=== PATIENT | female | born 1950 | race Caucasian/White ===

== ENCOUNTER 2024-01-27 16:26 | Inpatient (IN) | payer MEDICARE, SELFPAY ==
[2024-01-27] VITALS (7 sets, daily range): BP systolic 77–122; BP diastolic 34–61; PULSE 78–84; RESP 16; TEMP 36.3–36.8; O2SAT 97–100; BMI 27.2
[2024-01-27] MEDS: 0.9% Normal Saline (1000mL) 1,000 ML 50 ML IV (16:41)
[2024-01-27] MEDS: 0.9% Normal Saline (1000mL) 1,000 ML 999 ML IV (21:05)
[2024-01-27] MEDS: Ciprofloxacin 400 MG/200 ML BAG 200 MG IV (22:06)
--- NOTE | 2024-01-27 22:55 | PCM.PN.HOSP ---
Subjective Subjective Patient notes some mild ongoing dysuria with catheter in place with ongoing continuous bladder irrigation. She does state that when she has been up with staff she does have lightheadedness and dizziness although she is currently feeling improved. She status post 1 L IV fluid bolus and BP is improved at this time. Discussed plan of care which included PRBC administration which is already been ordered per urology and plan transition to the OR for cystoscopy and further evaluation. Patient does have a history of gross hematuria previously with previous cystoscopy with no tumors or any bladder abnormality on last evaluation. Patient denies fevers, chills, nausea, emesis, abdominal pain, chest pain or dyspnea. Objective Data Objective Data Vital Signs: Vital Signs Temp Pulse Resp BP Pulse Ox O2 Del Method 98.2 F 78 16 77/60 L 97 Room Air 01/27/24 22:08 01/27/24 22:26 01/27/24 22:08 01/27/24 22:26 01/27/24 22:08 01/27/24 22:08 Oxygen Delivery Method Room Air Weight: 174 lb Body Mass Index (BMI) 27.2 Intake & Output: Intake and Output for Last 24 Hours 01/25/24 01/26/24 01/27/24 23:59 23:59 23:59 Intake Total 200 / 200 Balance 200 / 200 Lab / Micro Data 01/27/24 22:30 01/27/24 22:30 Physical Exam Narrative Physical Examination: General: Awake, alert, oriented x 3 and cooperative, laying in the MS bed, notes feeling improved since IV fluid bolus, still complaining of dysuria. Skin: Normal color, normal turgor, no icterus, no cyanosis. HEENT: AT/NC, EOMI, PERRLA, mildly dry MM, no carotid bruits or JVD noted. Lungs: Mildly diminished, greater bases, proper effort, no rales, ronchi or wheezing. Heart: Currently regular rate and rhythm; no gallop, rub audible. Abdomen: Soft, overweight, mild suprapubic discomfort with palpation otherwise NTTP, ND, distant normal BS, no appreciated HSM. Extremities: No cyanosis, no clubbing, no marked peripheral edema noted. : Conrad catheter three-way in place with continuous irrigation ongoing, Conrad bag with bright red blood tinged. Neurological: Patient awake, alert, oriented as noted, cognitive function intact; pupils equally reactive to light and accommodation, cranial nerves grossly normal, moving all 4 extremities, no focal deficits, strength moderately to severely globally decreased secondary to acute presentation. Psychiatric: Affect appears fatigued, no acute evidence of depressive or anxiety feelings but does have underlying history. Assessment & Plan Assessment/Plan (1) Gross hematuria: (2) Hypotension: PLAN: Plan The patient is a 73 y/o F w/ PMHx: Former tobacco use, Anxiety and Depression, HTN, Hx previous gross hematuria following with Dr. Tovar who presents to the [facility] as direct admission from [facility] per Dr. Tovar with acute Hematuria onset on day of presentation and dysuria prompting transfer. #1. Acute blood loss anemia secondary to acute hematuria with associated hypotension, improved with IV fluids: Patient admitted to medical surgical floor per urology, upon arrival patient noted to be hypotensive, responsive to 1 L normal saline bolus, PRBC ordered per urologist and pending, will discontinue all hypertensive regimen and aspirin therapy as well, continue three-way Conrad catheter with continuous bladder irrigation, attempting to obtain UA from outside facility however this time it does not appear she had any concurrent UTI, plan for transition to [place] to OR for cystoscopy and evacuation of blood clots with cauterization per review of urology plan of care. Admission hemoglobin 8.8, MCV 85, trend with repeat CBC in a.m. however low threshold to repeat H&H earlier if ongoing hematuria despite surgical intervention. If postoperatively patient blood pressure is stable and improved and agree with transition back to [facility] otherwise would benefit from telemetry monitoring and potentially PCU status. #2. Questionable Chronic Kidney Disease Stage III unclear subtype per GFR trending versus elevated creatinine/acute renal insufficiency versus DANTE, unable to determine given no prior renal function noted in [facility]: Admission BUN/Cr 36/1.68, GFR 32, baseline renal function unknown, will trend renal function to elucidate further. #3. Hypertension: Given presentation with hypotension with acute blood loss anemia is noted holding all hypertensive regimen. #4. Hyperlipidemia: We will continue patient on statin therapy. #5. Anxiety and depression: We will continue patient home citalopram regimen. #6. Former tobacco use: Encourage continued tobacco cessation. #7. DVT prophylaxis: Would benefit from consideration SCDs. #8. CODE status: Patient CRISTO is her friend Cisco Santos and she is uncertain if living will is in place. Discussed CODE status at length including difference between FULL code, DNR-CCA and DNR-CC status. Following discussions about the differences in these status, requested Full Code status. Charges/Coding Visit Charges Inpatient E&M: 52802 Subs Hosp L3
--- NOTE | 2024-01-27 23:04 | HP.PCM_ITS ---
HPI - General General Date of Admission: 01/27/24 Date of Service: 01/27/24 Chief Complaint: Gross hematuria HPI Narrative NUVIA BAIN, is a 73 F who presents to [facility] she is a transfer from [facility]. She has a history of gross hematuria in the past and we did a cystoscopy in the office I did not see any tumors or abnormalities in the bladder at that point and she was told to contact me if the bleeding continues. She then reports that yesterday she started having some gross hematuria and went to the emergency room she had a workup done and then was discharged but then she we presented back to [facility] with more bleeding and she was concerned about the bleeding so I was called and accepted the patient as a transfer, on arrival she was fairly stable but then this evening hematuria has not increased and has had more gross blood in the urine so at this point we placed a three-way catheter to irrigate out the blood clots her blood pressure has been running low and currently she is 77/66 but she looks clinically stable. She will be resuscitated with fluids and she might need a blood transfusion patient was agreeable with this we will consult the hospitalist to help with management of her blood pressure as well. Plan to take her to surgery immediately for cystoscopy evacuation of all the blood clots and cauterization of the bleeding and resection of any possible tumors. [facility] Medical History Wears hearing aid in both ears Depression Former smoker Hypertension Home Medications ?Medication ?Instructions ?Recorded ?Last Taken ?Type aspirin 81 mg chewable tablet 81 mg PO DAILY@0800 07/17/15 01/27/24 History cholecalciferol (vitamin D3) 25 3,000 unit PO DAILY 07/17/15 01/27/24 History mcg (1,000 unit) tablet (Vitamin D3) citalopram 20 mg tablet 20 mg PO DAILY 07/17/15 01/27/24 History lisinopril 10 mg tablet 10 mg PO DAILY 07/17/15 01/27/24 History meloxicam 15 mg tablet 15 mg PO DAILY 07/17/15 01/27/24 History naproxen sodium 500 mg 500 mg PO PRN PRN Pain 07/24/15 07/21/15 History tablet,extended release 24 hr mphase atorvastatin 40 mg tablet 40 mg PO DAILY 01/27/24 01/27/24 History cephalexin 500 mg capsule 500 mg PO Q12.TCU 01/27/24 01/27/24 History metoprolol tartrate 25 mg tablet 25 mg PO BID 01/27/24 01/27/24 History oxycodone-acetaminophen 5 mg-325 1 tab PO Q12.TCU severe pain 01/27/24 01/26/24 History mg tablet Allergy/AdvReac Type Severity Reaction Status Date / Time No Known Allergies Allergy Verified 07/17/15 13:21 Surgical History History of appendectomy History of cholecystectomy Social History Smoking Status: Former smoker ROS ROS Narrative Review of systems is negative except for gross hematuria she has got no shortness of breath chest pain etc. really only having pain in the suprapubic area Constitutional Constitutional: Denies chills, fever(s) or malaise Eyes Eyes: Denies blurry vision or change in vision ENT HEENT: Reports none Cardiovascular Cardiovascular: Denies chest pain or palpitations Respiratory/Chest Respiratory/Chest: Denies cough or shortness of breath with exertion Gastrointestinal Gastrointestinal: Denies abdominal pain, constipation or diarrhea Musculoskeletal Musculoskeletal: Denies back pain, joint stiffness or joint swelling Integumentary Integumentary: Denies dry skin, jaundice, lesions or rash Neurologic Neurologic: Denies confusion, syncope or weakness Psychiatric Psychiatric: Reports none; Denies anxiety or depression Endocrine Endocrinology: Denies excessive sweating, fatigue or flushing Hematologic/Lymphatic Hematologic/Lymphatic: Denies anemia, easy bleeding or easy bruising Vital Signs Vital Signs Vital Signs: 01/27/24 16:10 01/27/24 16:31 01/27/24 20:33 Temperature 97.4 F L 97.8 F Temperature Source Temporal Oral Pulse Rate 78 83 Respiratory Rate 16 16 Respiratory Effort Normal Non-Labored Respiratory Depth Normal Respiratory Pattern Normal Blood Pressure 122/61 H 84/44 L Blood Pressure Mean 81 57 Blood Pressure Source Monitor Monitor Blood Pressure Position Semi-Fowlers Blood Pressure Location Left Arm Pulse Ox 99 100 Oxygen Delivery Method Room Air Room Air Room Air 01/27/24 20:38 01/27/24 20:58 01/27/24 22:08 Temperature 98.2 F Temperature Source Oral Pulse Rate 83 Respiratory Rate 16 Respiratory Effort Normal Non-Labored Respiratory Depth Normal Respiratory Pattern Normal Blood Pressure 84/44 L 94/34 L Blood Pressure Mean 54 Blood Pressure Source Monitor Blood Pressure Position Semi-Fowlers Blood Pressure Location Left Arm Pulse Ox 97 Oxygen Delivery Method Room Air 01/27/24 22:26 Temperature Temperature Source Pulse Rate 78 Respiratory Rate Respiratory Effort Respiratory Depth Respiratory Pattern Blood Pressure 77/60 L Blood Pressure Mean 65 Blood Pressure Source Monitor Blood Pressure Position Semi-Fowlers Blood Pressure Location Left Arm Pulse Ox Oxygen Delivery Method Weight Weight: 78.925 kg Body Mass Index (BMI) 27.2 Physical Exam Narrative On exam she is not in any distress she is alert and oriented x 3 interactive and talking pleasant cooperative she is not diaphoretic or in distress. Her abdomen is soft and benign extremities are normal we placed a Conrad catheter into the bladder and started three-way irrigation Const alert and oriented x3 General Appearance: cooperative HEENT normocephalic, head/scalp atraumatic, EAC's normal and TM's normal bilaterally Eyes PERRL and EOMs intact bilaterally Pupil: sluggish Neck no lymphadenopathy, supple and no JVD General: trachea midline Lymph Lymphatic: no lymphadenopathy noted, lymphedema and lymphadenopathy Resp normal respiratory effort, normal air movement and clear to auscultation bilaterally Cardio regular rate, regular rhythm and peripheral pulses 2+ throughout GI soft to palpation, non-tender and non-distended Extremity normal capillary refill and no clubbing, cyanosis or edema General Extremity: no tenderness to palpation of joints or extremities Skin no rashes or lesions noted General Skin Exam: turgor normal Lesions: no lesions Rashes: no rashes Neuro CN's II-XII intact bilaterally Speech: speech normal Motor Exam: strength 5/5 throughout; Negative for general weakness Psych thought process normal, cooperative and affect normal Appearance: appropriate Results Lab / Micro Data 01/27/24 22:30 01/27/24 22:30 Assessment & Plan Assessment/Plan (1) Gross hematuria: PLAN: Plan to type and screen the patient for 2 units of blood, continue with hydration resuscitation of her blood pressure, and we will plan to take the patient to surgery later this evening for cystoscopy evacuation of blood clots and cauterization and stop the bleeding. Hospital service has been consulted as well to help with medical management. (2) Hypotension:
[2024-01-27 23:07] LABS: Absolute Lymphocyte Count 1.07 X10^3/uL (0.83-4.51); Absolute Neutrophil Count 6.1 X10^3/uL (2.0-7.7); Basophil# 0.04 X10^3/uL; Basophil% 0.5 % (0-1); Eosinophil# 0.16 X10^3/uL; Hematocrit 27.8 % (37-47); Hemoglobin 8.8 g/dL (12.0-15.0); Lymphocyte # 1.07 X10^3/ul (0.83-4.51); Lymphocyte % 13.5 % (19-41); Mean Corp Hgb Conc 31.7 g/dL (32-36); Mean Corpuscular Hgb 26.9 pg (27.0-32.0); Mean Platelet Vol. 10.7 fl (6.2-12.0); Monocyte# 0.58 X10^3/uL; Monocyte% 7.3 % (0-10); NRBC Flagged by Analyzer 0 % (0-5); Neutrophil # 6.07 X10^3/uL (2.7-7.7); Neutrophil % 76.3 % (47-70); Platelet Count 235 K/mm3 (150-450); RBC Distribution Width CV 13.6 % (11.6-14.6); RBC Distribution Width SD 42.3 fl (35.1-43.9); Red Blood Count 3.27 M/mm3 (4.2-5.4)
[2024-01-27 23:26] LABS: Anion Gap 6 (5-15); BUN 36 mg/dL (7-18); BUN/Creat Ratio 21.4 RATIO (10-20); Calcium,Total 8.7 mg/dL (8.5-10.1); Chloride 108 mmol/L (98-107); Creatinine, Serum 1.68 mg/dL (0.55-1.02); EST Glomerular Filtration Rate 32 mL/min (>60); Est Glom Filt Rate - Afr Amer 38 mL/min (>60); Glucose 117 mg/dL (74-106); Potassium 3.8 mmol/L (3.5-5.1); Sodium Level 136 mmol/L (136-145)
--- NOTE | 2024-01-27 23:26 | PCM.PRE.AN2 ---
ASA Classification* ASA Classification ASA Classification: 3 and E Assessment & Plan Anesthesia* Anesthesia Assessment Anesthesia Assessment: Discussed sedation and/or anesthesia options, risks, benefits, and alternatives with patient/parents/legal guardian/POA. Questions invited. The patient/parents/legal guardian/POA seems to understand and agrees to proceed with anesthesia plan. Reviewed the physical assessment, medical history, allergy history and patient home medications list prior to surgery/procedure/anesthetic and documented any changes. Performed airway and anesthesia risk assessments. Anesthesia Type Anesthesia Type: General (see written pre anesthesia record for full assessment) Anesthesia Focused Assessment* Temperature: 97.4 F Pulse Rate: 84 Blood Pressure: 102/57 Respiratory Rate: 16 Pulse Ox: 99 Airway Assessment Mouth opens: >3 cm Mallampati Score: II Focused Labs Anesthesia Preop lab: CBC WBC 8.0 K/mm3 (4.4-11.0) 01/27/24 22:30 RBC 3.27 M/mm3 (4.2-5.4) L 01/27/24 22:30 Hgb 8.8 g/dL (12.0-15.0) L 01/27/24 22:30 Hct 27.8 % (37-47) L 01/27/24 22:30 Plt Count 235 K/mm3 (150-450) 01/27/24 22:30 CHEMISTRY Potassium 3.8 mmol/L (3.5-5.1) 01/27/24 22:30 Sodium 136 mmol/L (136-145) 01/27/24 22:30 BUN 36 mg/dL (7-18) H 01/27/24 22:30 Creatinine 1.68 mg/dL (0.55-1.02) H 01/27/24 22:30 Glucose 117 mg/dL (74-106) H 01/27/24 22:30 COAG Pre-Assessment Diagnosis/Proposed Procedure Planned Operative Procedure(s): turbt Anesthesia History 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 When Was Last Pacemaker Check QUESTION #4 FULL TEXT: You/Your Family Experience fever (hyperthermia) with Anesthesia Last Oral Intake Last Oral intake: Last Oral Intake NPO since 18:30 01/27/24 23:08 Meds taken in AM with sips of water? 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: PONV - supervisor airplane flight attendant Female HX of Motion Sickness HX of N/V After Surgery Non-Smoker Duration of Surgery greater than 60 minutes Number of Risk Factors PONV Score Height & Weight Height & Weight: Anesthesia: Height & Weight Height 5 ft 7 in 01/27/24 23:08 Weight: 78.9 kg 01/27/24 23:08 Body Mass Index (BMI) 27.2 01/27/24 23:08 Respiratory Assessment Respiratory Assessment - supervisor airplane flight attendant: Respiratory Tract Infection Hx - supervisor airplane flight attendant Hx Respiratory Tract Infection No 01/27/24 23:05 STOP Sleep Apnea STOP Sleep Apnea - supervisor airplane flight attendant: STOP Sleep Apnea - supervisor airplane flight attendant Hx Hypertension Yes 01/27/24 16:10 Hx Sleep Apnea No 01/27/24 16:10 CPAP BIPAP Do you snore loudly (louder No 01/27/24 16:10 than talking or can be heard Do you often feel tired/ No 01/27/24 16:10 fatigued/ sleepy during daytime? Has anyone observed you stop No 01/27/24 16:10 breathing during sleep? STOP Results Negative 01/27/24 16:10 QUESTION #5 FULL TEXT : Do you snore loudly (louder than talking or can be heard through closed doors)? 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 Specify any problems Hx of Preganancy in last 3 No 01/27/24 16:10 Months Nurse Filling Out Transfusion [facility] 01/27/24 16:10 & Questions: Date: 01/27/24 01/27/24 16:10 Time: 16:13 01/27/24 16:10 Patient unable to answer at this time (ie. 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: /Reproductive Hx- supervisor airplane flight attendant Hx Now No 01/27/24 23:05 Gestational Age (in weeks): EDC: Hx Hx Para Hx Section SAB No 01/27/24 23:05 Active Medications Active Medications: Current Medications Generic Name Dose Route Start Last Admin Trade Name Freq PRN Reason Stop Dose Admin Atorvastatin Calcium 40 mg 01/27/24 22:00 01/27/24 18:44 Atorvastatin Calcium 40 Mg Tablet PO Not Given QHS NICK Cholecalciferol 25 mcg 01/28/24 08:00 Cholecalciferol (Vit D3) 25 Mcg Tablet (1,000 Units) PO DAILYCM NICK Citalopram Hydrobromide 20 mg 01/28/24 10:00 Citalopram 20 Mg Tablet PO DAILY NICK Sodium Chloride 250 mls @ 15 mls/hr 01/27/24 16:15 IV .[id number] PRN Additional IVPB Infusion Sodium Chloride 250 mls @ 15 mls/hr 01/27/24 16:15 IV .[id number] PRN Saline Flush Sodium Chloride 1,000 mls @ 50 mls/hr 01/27/24 16:30 01/27/24 16:41 IV 50 mls/hr .Q20H NICK Administration Ciprofloxacin 400 mg in 200 mls @ 200 mls/hr 01/27/24 22:00 01/27/24 22:06 Cipro IV 200 mls/hr Q12 NICK Administration Meloxicam 15 mg 01/28/24 10:00 Meloxicam 15 Mg Tablet PO DAILY NICK Sodium Chloride 10 - 40 ml 01/27/24 16:15 0.9% Saline Lock 10 Ml Syringe IV UD PRN SALINE FLUSH PFSH Medical History Post-menopausal Wears hearing aid in both ears Depression Former smoker Hypertension Home Medications ?Medication ?Instructions ?Recorded ?Last Taken ?Type aspirin 81 mg chewable tablet 81 mg PO DAILY@0800 07/17/15 01/27/24 History cholecalciferol (vitamin D3) 25 3,000 unit PO DAILY 07/17/15 01/27/24 History mcg (1,000 unit) tablet (Vitamin D3) citalopram 20 mg tablet 20 mg PO DAILY 07/17/15 01/27/24 History lisinopril 10 mg tablet 10 mg PO DAILY 07/17/15 01/27/24 History meloxicam 15 mg tablet 15 mg PO DAILY 07/17/15 01/27/24 History naproxen sodium 500 mg 500 mg PO PRN PRN Pain 07/24/15 07/21/15 History tablet,extended release 24 hr mphase atorvastatin 40 mg tablet 40 mg PO DAILY 01/27/24 01/27/24 History cephalexin 500 mg capsule 500 mg PO Q12.TCU 01/27/24 01/27/24 History metoprolol tartrate 25 mg tablet 25 mg PO BID 01/27/24 01/27/24 History oxycodone-acetaminophen 5 mg-325 1 tab PO Q12.TCU severe pain 01/27/24 01/26/24 History mg tablet Allergy/AdvReac Type Severity Reaction Status Date / Time No Known Allergies Allergy Verified 07/17/15 13:21 Surgical History History of appendectomy History of cholecystectomy Social History Smoking Status: Former smoker Review of Systems (Anesthesia) ROS Narrative System reviewed and no additional complaints, except as documented.
--- NOTE | 2024-01-27 23:40 | BLB_PTH ---
PATIENT: NUVIA BAIN LOC: MS3 U#:[id number] AGE/SX: 73/F ROOM: [facility] [place] RE01/27/[address]: Dr. Rufino Tovar MD : [id number] BED: 1 DIS: 01/29/2024 SPEC #: [id number] RECD: 01/29/24 07:44 STATUS: BAILEE GERARDO #: [id number] LORA: 01/27/24 23:[address]: Rufino Tovar DEPT: SURGICAL PATHOLOGY RECD BY: Rajinder Vargas ENTERED: 01/29/24 09:48 SP TYPE: TURB OTHR DR: Dr. Jamel Perla, DO [address] [place] Tissues: A - Urinary bladder, NOS B - BLOOD CLOT, NOS Procedures: Surgery Specimen Level III Surgery Specimen Level V HEADER OPERATION: Transurethral resection bladder PRE-OP DIAGNOSIS: Gross hematuria, bladder lesion TISSUE SUBMITTED: A- Bladder tissue, B- Blood clots MICROSCOPIC DIAGNOSIS A. 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 No evidence of malignancy. Mild reactive epithelial atypia. B. Blood clots, removal: Organizing blood clots. / 01/30/2024 MICROSCOPIC DESCRIPTION Slides are reviewed. GROSS DESCRIPTION A. Received in fixative is one container labeled with the patient's name and designated Bladder tissue. The specimen consists of multiple irregular fragments of batres soft tissue mixed with blood clots that in aggregate measure 2.0 x 1.5 x 0.3 cm. The specimen is totally submitted in one cassette. B. Received in fixative is one container labeled with the patient's name and designated Blood clots. The specimen consists of multiple fragments of blood clots measuring in aggregate 10.0 x 10.0 x 2.5cm. No tissue is identified. Engineering Specialist Technician tissue are submitted in two cassettes. Kerry 01/29/2024 TC:5 CPT:79710,66083 ADDENDUM ADDENDUM ADDENDUM 02/05/2024 11:06 ADDENDUM 02/05/2024 11:06 ADDENDUM 02/05/2024 11:06 ADDENDUM 02/05/2024 11:06 ADDENDUM 02/05/2024 11:06 The specimen is sent to [facility] for expert opinion, reviewed by Dr. Simental and the above diagnosis is rendered. The complete report is viewable in the patient's EMR.
[2024-01-28] VITALS (16 sets, daily range): BP systolic 97–127; BP diastolic 51–83; PULSE 74–95; RESP 16–20; TEMP 36.3–37.1; O2SAT 94–100
--- NOTE | 2024-01-28 00:40 | PCM.OPRPT ---
Report of Operation Date of Procedure: 01/28/24 Pre-Operative Diagnosis: Gross hematuria Post-Operative Diagnosis: Gross hematuria and bladder tumor Surgery/Procedure Performed:: Cystoscopy evacuation of blood clots and transurethral section of a large bladder tumor Description of Surgical Findings:: Findings, in the posterior wall there was some active bleeding and this was cauterized completely in the posterior wall and up to the dome there was a large patch that was about 5 x 6 cm in size and by 0.5 cm in depth that looks suspicious for carcinoma in situ multiple biopsy this areas were taken and it was cauterized extensively Patient presented to the hospital with acute gross hematuria. Patient understands is possible it may not be able to stop the bleeding patient also understands is possible that the patient may need multiple procedures. Patient was taken back to the operating room after smooth induction of anesthesia the patient was placed supine on the table. The patient was placed in dorsolithotomy position. The urethra and genitals prepped and draped in usual sterile fashion. I went into the bladder with a 30 degree lens and a cystoscope was performed and identified a significant amount of hemorrhage within the bladder this was all evacuated out, and then occupying mostly the posterior wall the bladder dome and posterior wall there was a large area that was abnormal size was measured as above. I then switched over to the 70 degree lens and inspected the rest of the bladder with a 70 degree lens to make sure there is no other tumors in the bladder and to identify all the tumor locations. The right and left ureteral orifice were identified. The tumor was not involved with ureteral orifice. I then placed the Olympus bipolar resectoscope with a large loop into the bladder. I then started resected the tumor area in the posterior wall and started superficially shaving small little pieces working my way to the base of the tumor. As I went along I then cauterize any bleeders that were encountered during the resection. The tumor pieces were then flushed out of the bladder and continued resecting the tumor until finally I got down to the base of the tumor and the muscle of the bladder was then identified a small little bit of muscle was taken with the resection. The Ellik was used then to evacuate all the tumor pieces out of the bladder. I then cauterized extensively the tumor base and also circumferentially around where the tumor was. Again we made sure to evacuate all the pieces out the bladder. I made sure there was no more bleeding from the base of the bladder and then over the tumor pieces were then evacuated out and sent off as a specimen. We then placed the catheter in the bladder and the patient was taken back to the PACU in stable condition with continuous irrigation. Surgeon: Rufino Tovar Type of Anesthesia: General Drains: 22fr 3 way Admit VTE Documentation VTE Present on Admission: No VTE Mechan Device Prophylaxis: SCD's VTE Pharm Prophylaxis ordered?: No
--- NOTE | 2024-01-28 00:54 | PCM.POST.ANE ---
Anesthesia: Postop Eval I Current Vital Signs Temperature: 98.3 F Pulse Rate: 82 Blood Pressure: 115/53 Respiratory Rate: 19 Pulse Ox: 100 Assessment Airway patent: Yes Spontaneous unlabored respirations: Yes nausea: No Vomiting: No Anesthesia Complication: No Fluid Hydration Crystalloid volume administer (ml): 350 Total IV fluid infused: 350 Progress Note Anesthesia document: Postop Eval 1 completed: Yes
--- NOTE | 2024-01-28 00:55 | POSTOPAN2_ITS ---
Anesthesia Postop Eval I Sum Postop Eval Completion status Anesthesia document: Postop Eval 1 completed: Yes Anesthesia Postop Eval I Summary Anesthesia Postop Eval I Summary: Anesthesia Postop Eval I: Assessment Summary Airway patent Yes 01/28/24 00:54 [email or web address] Spontaneous unlabored Yes 01/28/24 00:54 [email or web address] respirations Mental status nausea No 01/28/24 00:54 [email or web address] Vomiting No 01/28/24 00:54 [email or web address] Anesthesia Postop Eval I: Fluid Summary Crystalloid volume administer 350 01/28/24 00:54 [email or web address] (ml) Colloids volume administered ( ml) Blood Product volume administered (ml) Total IV fluid infused 350 01/28/24 00:54 [email or web address] Anesthesia Postop Eval I: Summary Notes Anesthesia Complication No 01/28/24 00:54 [email or web address] [email or web address] Anesthesia Complication Comment: Post-operative progress note Anesthesia: Postop Eval II Evaluation Mental status: Awake Pain Level: 0 nausea: No Vomiting: No
--- NOTE | 2024-01-28 00:55 | PCM.POSTANE2 ---
Anesthesia Postop Eval I Sum Postop Eval Completion status Anesthesia document: Postop Eval 1 completed: Yes Anesthesia Postop Eval I Summary Anesthesia Postop Eval I Summary: Anesthesia Postop Eval I: Assessment Summary Airway patent Yes 01/28/24 00:54 [email or web address] Spontaneous unlabored Yes 01/28/24 00:54 [email or web address] respirations Mental status nausea No 01/28/24 00:54 [email or web address] Vomiting No 01/28/24 00:54 [email or web address] Anesthesia Postop Eval I: Fluid Summary Crystalloid volume administer 350 01/28/24 00:54 [email or web address] (ml) Colloids volume administered ( ml) Blood Product volume administered (ml) Total IV fluid infused 350 01/28/24 00:54 [email or web address] Anesthesia Postop Eval I: Summary Notes Anesthesia Complication No 01/28/24 00:54 [email or web address] Anesthesia Complication Comment: Post-operative progress note Anesthesia: Postop Eval II Evaluation Mental status: Awake Pain Level: 0 nausea: No Vomiting: No
--- NOTE | 2024-01-28 08:21 | PN.HOSP_ITS ---
Reason for Visit Reason for Visit: Gross hematuria Subjective Subjective Patient is a 73-year-old patient who was transferred here from [facility]. She has a history of gross hematuria previously and has had previous cystoscopy in the office with no identifiable tumors or abnormalities in the bladder. At that point she was told urology to contact him if the bleeding continued. She had recurrent gross hematuria on 01/26/2024 and went to the emergency department. She had a workup done and then was discharged home but presented back to the hospital with more bleeding and was concerned so the patient was transferred here. A three-way catheter was placed for irrigation and we were consulted for assistance with medical management. She was taken for cystoscopy early this morning at which time she had a cystoscopy evaluation of clots and transurethral section of a large bladder tumor. 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 Patient has no complaints at this time. Urine is clear and plan is to discontinue continues in her ideation with possible discharge tomorrow and outpatient follow-up. Patient asks for a couple coffee. This was provided. Objective Data Objective Data Vital Signs: Vital Signs Temp Pulse Resp BP Pulse Ox O2 Del Method 98.1 F 80 16 127/67 H 100 Room Air 01/28/24 07:04 01/28/24 07:04 01/28/24 07:04 01/28/24 07:04 01/28/24 07:04 01/28/24 07:04 Oxygen Delivery Method Room Air Weight: 78.9 kg Body Mass Index (BMI) 27.2 Intake & Output: Intake and Output for Last 24 Hours 01/26/24 01/27/24 01/28/24 23:59 23:59 23:59 Intake Total 1740.83 / 1740.83 102 / 102 Output Total 400 / 400 Balance 1740.83 / 1740.83 -298 / -298 Lab / Micro Data 01/28/24 08:10 01/28/24 08:10 Labs: Laboratory Results - last 24 hr 01/27/24 22:30: WBC 8.0, RBC 3.27 L, Hgb 8.8 L, Hct 27.8 L, MCV 85.0, MCH 26.9 L , MCHC 31.7 L, RDW Std Deviation 42.3, RDW Coeff of Ruddy 13.6, Plt Count 235, MPV 10.7, Immature Gran % (Auto) 0.400, Neut % (Auto) 76.3 H, Lymph % (Auto) 13.5 L, Evangeline % (Auto) 7.3, Eos % (Auto) 2.0, Baso % (Auto) 0.5, Absolute Neuts (auto) 6.1, Absolute Lymphs (auto) 1.07, Nucleated RBC % 0, Sodium 136, Potassium 3.8, Chloride 108 H, Carbon Dioxide 22.0, Anion Gap 6, BUN 36 H, Creatinine 1.68 H, Estim Creat Clear Calc 31.30, Est GFR (MDRD) Af Amer 38 L, Est GFR (MDRD) Non-Af 32 L, BUN/Creatinine Ratio 21.4 H, Glucose 117 H, Calcium 8.7, Blood Type A POSITIVE, Antibody Screen NEGATIVE, Crossmatch See Detail Physical Exam Const alert, oriented x3, no apparent distress, average body habitus and well nourished HEENT head/scalp atraumatic and moist oral mucous membranes Head and Scalp: normocephalic Resp normal respiratory effort, no retractions, no use of accessory muscles and clear to auscultation bilaterally Auscultation: Negative for rales, rhonchi or wheezes Cardio regular rate, regular rhythm, S1 normal heart sound, S2 normal heart sound, no murmurs, no rub, no gallops and no clicks GI normal to inspection, nondistended, normoactive bowel sounds, soft to palpation and non-tender Extremity no clubbing, cyanosis or edema Extremity Narrative: Pedal pulses are 2+ Neuro oriented x3, moves all extremities and no focal motor deficits Speech: speech normal Psych affect normal Psych Narrative: Very pleasant, interacts appropriate Assessment & Plan Assessment/Plan (1) Gross hematuria: (2) Hypotension: (3) Acute anemia: PLAN: Plan Gross hematuria secondary to bladder tumor -Biopsies taken -Hold aspirin -IVF per primary service -Cipro per primary service -Will hold NSAIDs at this time -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 -Management per primary service -Currently has three-way bladder irrigation ongoing Acute blood loss anemia secondary to the above -Transfused 2 units of packed red blood cells -Hemoglobin 8.8 on presentation and now 10.3 -Will check a repeat hemoglobin today at noon to assess for stability -Transfuse for precipitous drop or hemoglobin less than 7 Hypotension -Resolved -Current blood pressure 127/67 -Hold home antihypertensives for now -As needed hydralazine available Essential hypertension -Will hold antihypertensives due to hypotension (lisinopril/metoprolol) -As needed hydralazine available HPL -cont atorvastatin Elevated serum creatinine -Baseline is unknown at this time -Will continue to monitor Anxiety/Depression -cont Celexa History of tobacco abuse -Encourage ongoing cessation DVT prophylaxis -Add SCDs -Avoid chemoprophylaxis due to bleeding CODE STATUS -Full code as noted in the note will add to the orders Charges/Coding Visit Charges Inpatient E&M: 70083 Subs Hosp L2
[2024-01-28 08:22] LABS: Absolute Lymphocyte Count 1.25 X10^3/uL (0.83-4.51); Absolute Neutrophil Count 4.7 X10^3/uL (2.0-7.7); Basophil# 0.05 X10^3/uL; Basophil% 0.8 % (0-1); Eosinophil# 0.16 X10^3/uL; Eosinophils% 2.4 % (0-5); Hematocrit 32.3 % (37-47); Hemoglobin 10.3 g/dL (12.0-15.0); Lymphocyte # 1.25 X10^3/ul (0.83-4.51); Lymphocyte % 18.8 % (19-41); Mean Corp Hgb Conc 31.9 g/dL (32-36); Mean Corpuscular Volume 84.6 fL (81-99); Mean Platelet Vol. 10.1 fl (6.2-12.0); Monocyte# 0.44 X10^3/uL; Monocyte% 6.6 % (0-10); NRBC Flagged by Analyzer 0 % (0-5); Neutrophil # 4.73 X10^3/uL (2.7-7.7); Neutrophil % 71.1 % (47-70); Platelet Count 213 K/mm3 (150-450); RBC Distribution Width CV 14.1 % (11.6-14.6); RBC Distribution Width SD 43.6 fl (35.1-43.9); Red Blood Count 3.82 M/mm3 (4.2-5.4); White Blood Count 6.7 K/mm3 (4.4-11.0)
[2024-01-28 08:43] LABS: Anion Gap 6 (5-15); BUN 25 mg/dL (7-18); BUN/Creat Ratio 23.6 RATIO (10-20); Calcium,Total 8.8 mg/dL (8.5-10.1); Chloride 110 mmol/L (98-107); Creatinine, Serum 1.06 mg/dL (0.55-1.02); EST Glomerular Filtration Rate 54 mL/min (>60); Est Glom Filt Rate - Afr Amer 65 mL/min (>60); Glucose 102 mg/dL (74-106); Potassium 4.1 mmol/L (3.5-5.1); Sodium Level 139 mmol/L (136-145)
[2024-01-28] MEDS: Cholecalciferol (VIT D3) 25 MCG TABLET (1,000 UNITS) PO (08:57)
[2024-01-28] MEDS: Citalopram 20 MG Tablet PO (09:01)
--- NOTE | 2024-01-28 09:16 | PCM.PN.GU ---
Subjective Subjective 73-year-old female status post resection bleeding bladder lesion. Explained to the patient was not sure if this was cancer or just an inflammatory lesion that was bleeding. Fortunately today the urine is completely clear so we can stop continuous bladder irrigation she can get out of bed walk away around and ambulate with a Conrad to leg bag we can clamp the irrigation port. Objective Data Objective Data Vital Signs: Vital Signs Temp Pulse Resp BP Pulse Ox O2 Del Method 98.1 F 80 16 127/67 H 100 Room Air 01/28/24 07:04 01/28/24 07:04 01/28/24 07:04 01/28/24 07:04 01/28/24 07:04 01/28/24 07:04 Oxygen Delivery Method Room Air Weight: 78.9 kg Body Mass Index (BMI) 27.2 Intake & Output: Intake and Output for Last 24 Hours 01/26/24 01/27/24 01/28/24 23:59 23:59 23:59 Intake Total 1740.83 / 1740.83 102 / 102 Output Total 400 / 400 Balance 1740.83 / 1740.83 -298 / -298 Lab / Micro Data 01/28/24 08:10 01/28/24 08:10 Labs: Laboratory Results - last 24 hr 01/27/24 22:30: WBC 8.0, RBC 3.27 L, Hgb 8.8 L, Hct 27.8 L, MCV 85.0, MCH 26.9 L, MCHC 31.7 L, RDW Std Deviation 42.3, RDW Coeff of Ruddy 13.6, Plt Count 235, MPV 10.7, Immature Gran % (Auto) 0.400, Neut % (Auto) 76.3 H, Lymph % (Auto) 13.5 L, Prentiss % (Auto) 7.3, Eos % (Auto) 2.0, Baso % (Auto) 0.5, Absolute Neuts (auto) 6.1, Absolute Lymphs (auto) 1.07, Nucleated RBC % 0, Sodium 136, Potassium 3.8, Chloride 108 H, Carbon Dioxide 22.0, Anion Gap 6, BUN 36 H, Creatinine 1.68 H, Estim Creat Clear Calc 31.30, Est GFR (MDRD) Af Amer 38 L, Est GFR (MDRD) Non-Af 32 L, BUN/Creatinine Ratio 21.4 H, Glucose 117 H, Calcium 8.7, Blood Type A POSITIVE, Antibody Screen NEGATIVE, Crossmatch See Detail 01/28/24 08:10: WBC 6.7, RBC 3.82 L, Hgb 10.3 L, Hct 32.3 L, MCV 84.6, MCH 27.0, MCHC 31.9 L, RDW Std Deviation 43.6, RDW Coeff of Ruddy 14.1, Plt Count 213, MPV 10.1, Immature Gran % (Auto) 0.300, Neut % (Auto) 71.1 H, Lymph % (Auto) 18.8 L, [place] % (Auto) 6.6, Eos % (Auto) 2.4, Baso % (Auto) 0.8, Absolute Neuts (auto) 4.7, Absolute Lymphs (auto) 1.25, Nucleated RBC % 0, Sodium 139, Potassium 4.1, Chloride 110 H, Carbon Dioxide 23.0, Anion Gap 6, BUN 25 H, Creatinine 1.06 H, Estim Creat Clear Calc 49.60, Est GFR (MDRD) Af Amer 65, Est GFR (MDRD) Non-Af 54 L, BUN/Creatinine Ratio 23.6 H, Glucose 102, Calcium 8.8 Physical Exam Const alert and oriented x3 General Appearance: cooperative HEENT normocephalic, head/scalp atraumatic, EAC's normal and TM's normal bilaterally Eyes PERRL and EOMs intact bilaterally Pupil: sluggish Neck no lymphadenopathy, supple and no JVD General: trachea midline Lymph Lymphatic: no lymphadenopathy noted, lymphedema and lymphadenopathy Resp normal respiratory effort, normal air movement and clear to auscultation bilaterally Cardio regular rate, regular rhythm and peripheral pulses 2+ throughout GI soft to palpation, non-tender and non-distended Extremity normal capillary refill and no clubbing, cyanosis or edema General Extremity: no tenderness to palpation of joints or extremities Skin no rashes or lesions noted General Skin Exam: turgor normal Lesions: no lesions Rashes: no rashes Neuro CN's II-XII intact bilaterally Speech: speech normal Motor Exam: strength 5/5 throughout; Negative for general weakness Psych thought process normal, cooperative and affect normal Appearance: appropriate Assessment & Plan Assessment/Plan (1) Hypotension: PLAN: Resolved with control of bleeding and also blood pressure has improved after transfusion of blood (2) Gross hematuria: PLAN: Bleeding has stopped Conrad catheter to gravity drainage Hep-Lock IV fluids ambulate will monitor for 1 day plan to discharge home tomorrow and will give a voiding trial prior to going home.
[2024-01-28] MEDS: Ciprofloxacin 400 MG/200 ML BAG 200 MG IV ×2 (10:16→23:24)
[2024-01-28 12:28] LABS: Hemoglobin 10.1 g/dL (12.0-15.0)
[2024-01-28] MEDS: Atorvastatin Calcium 40 MG Tablet PO (23:14)
[2024-01-28] MEDS: 0.9% Saline Lock 10 ML Syringe IV (23:21)
[2024-01-29 04:55] VITALS: BP 141/60; PULSE 85; RESP 18; TEMP 36.5; O2SAT 96
[2024-01-29 06:34] LABS: Hematocrit 30.8 % (37-47); Mean Corp Hgb Conc 32.5 g/dL (32-36); Mean Corpuscular Hgb 27.2 pg (27.0-32.0); Mean Corpuscular Volume 83.9 fL (81-99); Mean Platelet Vol. 9.7 fl (6.2-12.0); Platelet Count 215 K/mm3 (150-450); RBC Distribution Width CV 14.1 % (11.6-14.6); RBC Distribution Width SD 43.2 fl (35.1-43.9); Red Blood Count 3.67 M/mm3 (4.2-5.4); White Blood Count 6.2 K/mm3 (4.4-11.0)
[2024-01-29 07:32] LABS: Anion Gap 9 (5-15); BUN 14 mg/dL (7-18); BUN/Creat Ratio 17.2 RATIO (10-20); Calcium,Total 9.1 mg/dL (8.5-10.1); Chloride 106 mmol/L (98-107); Creatinine, Serum 0.81 mg/dL (0.55-1.02); EST Glomerular Filtration Rate 73 mL/min (>60); Est Glom Filt Rate - Afr Amer 88 mL/min (>60); Estimated Creatinine Clearance 64.91 ml/min; Glucose 108 mg/dL (74-106); Potassium 4.1 mmol/L (3.5-5.1); Sodium Level 139 mmol/L (136-145)
--- NOTE | 2024-01-29 07:48 | DCINST_ITS ---
Discharge Instructions Diet Discharge Diet: No restrictions Activity Discharge Activity: Return to Normal Activity and May Not Drive (while taking narcotic pain medications.) Dressing / Incision Call your doctor if you observe: Fever of 101 or Higher Follow Up Care Please Follow Up With: Rufino Tovar MD When: Call [phone] for an appointment Test Results: Test results from this visit will be discussed in further detail at your follow- up appointment, if applicable. Discharge Plan Admission Admit Date/Time: 01/27/24 16:26 Attending Provider: Rufino Tovar Primary Care Provider: Norma Don Consulting Providers: Maira Bowling; Jamel Perla Discharge Orders/Prescriptions Prescriptions: No Action meloxicam 15 MG tablet 15 mg PO DAILY citalopram 20 MG tablet 20 mg PO DAILY lisinopril 10 MG tablet 10 mg PO DAILY aspirin 81 MG tablet,chewable 81 mg PO DAILY@0800 cholecalciferol (vitamin D3) [Vitamin D3] 1,000 UNIT tablet 3,000 unit PO DAILY naproxen sodium 500 MG tablet, ER multiphase 24 hr 500 mg PO PRN PRN (Reason: Pain) atorvastatin 40 mg tablet 40 mg PO DAILY oxycodone-acetaminophen 5-325 mg tablet 1 tab PO Q12.TCU cephalexin 500 mg capsule 500 mg PO Q12.TCU metoprolol tartrate 25 mg tablet 25 mg PO BID Referrals / Follow Up: Norma Don PA [Primary Care Provider] - Disposition Discharge Orders: Discharge Patient (Routine); Ordered 01/29/24 Ordered By: Dr. Rufino Tovar
--- NOTE | 2024-01-29 07:48 | DS.PCM_ITS ---
Providers Date of Admission: 01/27/24 Date of Discharge: 01/29/24 Primary Care Physician: FÉLIX Tee Consultations 01/27/24 22:35 Consult: Hospitalist Routine Consulting Provider: Carrie Le Reason for Consult: bleeding/hypotension EMERGENT Consult: No MD Notified: Yes Date Notified: 01/27/24 Time Notified: 22:39 Method of Notification: Text Reason For Visit: GROSS HEMATURIA Diagnosis Discharge Diagnosis (1) Gross hematuria: Status: Acute Code(s): R31.0 - Gross hematuria Plan: Bleeding has stopped Conrad catheter to gravity drainage Hep-Lock IV fluids ambulate will monitor for 1 day plan to discharge home tomorrow and will give a voiding trial prior to going home. (2) Hypotension: Status: Acute Code(s): I95.9 - Hypotension, unspecified Plan: Resolved with control of bleeding and also blood pressure has improved after transfusion of blood (3) Acute anemia: Status: Acute Code(s): D64.9 - Anemia, unspecified Medications at Discharge Home Medications aspirin 81 mg chewable tablet 81 mg PO DAILY@0800 07/17/15 cholecalciferol (vitamin D3) 25 mcg (1,000 unit) tablet (Vitamin D3) 3,000 unit PO DAILY 07/17/15 citalopram 20 mg tablet 20 mg PO DAILY 07/17/15 lisinopril 10 mg tablet 10 mg PO DAILY 07/17/15 meloxicam 15 mg tablet 15 mg PO DAILY 07/17/15 naproxen sodium 500 mg tablet,extended release 24 hr mphase 500 mg PO PRN PRN Pain 07/24/15 atorvastatin 40 mg tablet 40 mg PO DAILY 01/27/24 cephalexin 500 mg capsule 500 mg PO Q12.TCU 01/27/24 metoprolol tartrate 25 mg tablet 25 mg PO BID 01/27/24 oxycodone-acetaminophen 5 mg-325 mg tablet 1 tab PO Q12.TCU severe pain 01/27/24 Hospital Course Summary of Care Provided Minutes Spent on Discharge: 30 Hospital Course: 73-year-old female presented to the hospital with gross hematuria and bleeding from her bladder CT scan was reviewed from outside hospital no signs of bleeding except from the bladder large clot in the bladder. Patient was hypotensive and had significant hemorrhage of bleeding so Conrad catheter was placed and continuous irrigation was started. She was then taken immediately to surgery and found to have bleeding from the back of the bladder and raised reddish area in the black of the bladder with a lesion biopsies were taken this area was resected and cauterized completely. Since surgery the bleeding is stopped the urines been clear and we stopped the CBI. Will remove the Conrad catheter today for voiding trial and she should be able to go home today and follow-up in my office to review the biopsies in about 2 weeks. Physical Exam Const alert and oriented x3 General Appearance: cooperative HEENT normocephalic, head/scalp atraumatic, EAC's normal and TM's normal bilaterally Eyes PERRL and EOMs intact bilaterally Pupil: sluggish Neck no lymphadenopathy, supple and no JVD General: trachea midline Lymph Lymphatic: no lymphadenopathy noted, lymphedema and lymphadenopathy Resp normal respiratory effort, normal air movement and clear to auscultation bilaterally Cardio regular rate, regular rhythm and peripheral pulses 2+ throughout GI soft to palpation, non-tender and non-distended Extremity normal capillary refill and no clubbing, cyanosis or edema General Extremity: no tenderness to palpation of joints or extremities Skin no rashes or lesions noted General Skin Exam: turgor normal Lesions: no lesions Rashes: no rashes Neuro CN's II-XII intact bilaterally Speech: speech normal Motor Exam: strength 5/5 throughout; Negative for general weakness Psych thought process normal, cooperative and affect normal Appearance: appropriate Medical Records Data Attestation: I reviewed the patient's medical records Weight / BMI Weight Weight: 78.9 kg Body Mass Index (BMI) 27.2 ABG / Lab / Microbiology Data 01/29/24 06:18 01/29/24 06:18 Laboratory: Laboratory Results - last 24 hr 01/28/24 08:10: WBC 6.7, RBC 3.82 L, Hgb 10.3 L, Hct 32.3 L, MCV 84.6, MCH 27.0, MCHC 31.9 L, RDW Std Deviation 43.6, RDW Coeff of Ruddy 14.1, Plt Count 213, MPV 10.1, Immature Gran % (Auto) 0.300, Neut % (Auto) 71.1 H, Lymph % (Auto) 18.8 L, [place] % (Auto) 6.6, Eos % (Auto) 2.4, Baso % (Auto) 0.8, Absolute Neuts (auto) 4.7, Absolute Lymphs (auto) 1.25, Nucleated RBC % 0, Sodium 139, Potassium 4.1, Chloride 110 H, Carbon Dioxide 23.0, Anion Gap 6, BUN 25 H, Creatinine 1.06 H, Estim Creat Clear Calc 49.60, Est GFR (MDRD) Af Amer 65, Est GFR (MDRD) Non-Af 54 L, BUN/Creatinine Ratio 23.6 H, Glucose 102, Calcium 8.8 01/28/24 12:15: Hgb 10.1 L 01/29/24 06:18: WBC 6.2, RBC 3.67 L, Hgb 10.0 L, Hct 30.8 L, MCV 83.9, MCH 27.2, MCHC 32.5, RDW Std Deviation 43.2, RDW Coeff of Ruddy 14.1, Plt Count 215, MPV 9.7, Sodium 139, Potassium 4.1, Chloride 106, Carbon Dioxide 24.0, Anion Gap 9, BUN 14, Creatinine 0.81, Estim Creat Clear Calc 64.91, Est GFR (MDRD) Af Amer 88, Est GFR (MDRD) Non-Af 73, BUN/Creatinine Ratio 17.2, Glucose 108 H, Calcium 9.1 D/C Instructions Discharge Diet: No restrictions Call your doctor if you observe: Fever of 101 or Higher Please Follow Up With: Rufino Tovar MD When: Call [phone] for an appointment Meaningful Use Info Meaningful Use Meaningful Use Diagnoses (Choose all that apply): None applicable Ischemic Stroke Statin Dosing Therapy Reference: STATIN DOSE THERAPY REFERENCE: * Patients > 75 years receive moderate or high dose statin therapy. * Patients 75 years or YOUNGER should receive HIGH intensity statin dose unless contraindicated. You will be required to document reason for non-treatment if statin daily dose does not meet guidelines. HIGH DOSE STATIN THERAPY DAILY Atorvastatin > than or = to 40 mg Rosuvastatin > than or = to 20 mg Amlodipine + Atorvastatin > than or = to 2.5/40 mg Ezetimibe + Simvastatin 10/80 mg Simvastatin 80mg Discharge Plan Admission Admit Date/Time: 01/27/24 16:26 Attending Provider: Rufino Tovar Primary Care Provider: Norma Don Consulting Providers: Maira Bowling; Jamel Perla Discharge Orders/Prescriptions Prescriptions: No Action meloxicam 15 MG tablet 15 mg PO DAILY citalopram 20 MG tablet 20 mg PO DAILY lisinopril 10 MG tablet 10 mg PO DAILY aspirin 81 MG tablet,chewable 81 mg PO DAILY@0800 cholecalciferol (vitamin D3) [Vitamin D3] 1,000 UNIT tablet 3,000 unit PO DAILY naproxen sodium 500 MG tablet, ER multiphase 24 hr 500 mg PO PRN PRN (Reason: Pain) atorvastatin 40 mg tablet 40 mg PO DAILY oxycodone-acetaminophen 5-325 mg tablet 1 tab PO Q12.TCU cephalexin 500 mg capsule 500 mg PO Q12.TCU metoprolol tartrate 25 mg tablet 25 mg PO BID Referrals / Follow Up: Norma Don PA [Primary Care Provider] - Disposition Discharge Orders: Discharge Patient (Routine); Ordered 01/29/24 Ordered By: Dr. Rufino Tovar
[2024-01-29 08:00] VITALS: BP 137/69; PULSE 85; RESP 16; TEMP 36.4; O2SAT 97
[2024-01-29] MEDS: Cholecalciferol (VIT D3) 25 MCG TABLET (1,000 UNITS) PO (08:37)
[2024-01-29] MEDS: Citalopram 20 MG Tablet PO (08:40)
--- NOTE | 2024-01-29 08:48 | CASEMGMT ---
CECILE SHEN Assessment: Face to Face with pt for initial transition planning/care coordination assessment. CECILE SHEN introduced self and role at [facility], pt voices understanding and consents to assessment. Pt is A&O x4 and answers all questions appropriately at this time. Pt sitting on edge of bed in no distress eating breakfast. Care providers, pharmacy, and demographics verified/updated. Admitting Dx: gross hematuria Strata Score: 1 PCP:Norma HEARD Specialists:[place], uro; Cardio in [place]- pt can not recall name; Christian Schulte, [place] Preferred Pharmacy: [facility] Insurance: [employer] Prescription Benefit: yes LNOK: Cisco Santos, friend Living Arrangements: Pt lives with in a two story home with 2 steps to enter with a rail. Pt reports she is I in ADLs and IADLs. Pt denies concerns at home. She is the cg for her . Transportation: Pt does not drive. Pt friend Cisco transports her. DME:stairlift to second story, walker, cane, shower chair [facility], denies SNF stays. Pt states no concerns with going home at time of dc. Pt states no further concerns/needs. CM to follow. Advised pt to ask CM if any further question/concerns/needs arise, voices understanding. Pt Goal: Home Plan: Home Ronald HUBER CM
--- NOTE | 2024-01-29 09:21 | PHA.DC.MR.R ---
Pharmacy [facility] Med Reconciliation Pharmacy Service has performed discharge medication reconciliation for this patient. The patient's discharge medication list was reviewed for discrepancies and discrepancies were resolved. Medications at Discharge Home Medications aspirin 81 mg chewable tablet 81 mg PO DAILY@0800 07/17/15 cholecalciferol (vitamin D3) 25 mcg (1,000 unit) tablet (Vitamin D3) 3,000 unit PO DAILY 07/17/15 citalopram 20 mg tablet 20 mg PO DAILY 07/17/15 lisinopril 10 mg tablet 10 mg PO DAILY 07/17/15 meloxicam 15 mg tablet 15 mg PO DAILY 07/17/15 naproxen sodium 500 mg tablet,extended release 24 hr mphase 500 mg PO PRN PRN Pain 07/24/15 atorvastatin 40 mg tablet 40 mg PO DAILY 01/27/24 cephalexin 500 mg capsule 500 mg PO Q12.TCU 01/27/24 metoprolol tartrate 25 mg tablet 25 mg PO BID 01/27/24 oxycodone-acetaminophen 5 mg-325 mg tablet 1 tab PO Q12.TCU severe pain 01/27/24
--- NOTE | 2024-01-29 10:10 | NURSING ---
0915-pt able to void post cath remmoval. is dressed with all belongings packed and ride here downstairs pt waiting on escort with for dc. dc papers given
== END 2024-01-29 09:41 | disposition home or self-care (01) | DRG 669 ==
PROVIDERS: Internal Medicine; Admitting Provider Urology; PCP Physician Assistant; Visit Provider Urology
PROC: 0TBB8ZZ Excision of Bladder, Via Natural or Artificial Opening Endoscopic (ICD-10-PCS; principal; 2024-01-27 23:30)
DX: R31.0 Gross hematuria (principal); D62 Acute posthemorrhagic anemia; I95.9 Hypotension, unspecified; N18.30 Chronic kidney disease, stage 3 unspecified; F32.A Depression, unspecified; I12.9 Hypertensive chronic kidney disease with stage 1 through stage 4 chronic kidney disease, or unspecified chronic kidney disease; E78.5 Hyperlipidemia, unspecified; F41.9 Anxiety disorder, unspecified; Z79.82 Long term (current) use of aspirin; Z87.891 Personal history of nicotine dependence; N32.9 Bladder disorder, unspecified
CPT/HCPCS: 36415; 80048; 85018; 85025; 85027; 86850; 86900; 86901; 86920; 86922; 87086; 88304; 88307; J7030; J7040; P9016; A4216; J0744; J2405

== ENCOUNTER → 2024-04-08 | Outpatient (CLI) | payer MEDICARE, SELFPAY | END | disposition home or self-care (01) | LOC: LABSPEC 15:58 | PROVIDERS: PCP Physician Assistant; Referring Provider Urology; Visit Provider Urology | DX: N30.21 Other chronic cystitis with hematuria (principal) | CPT/HCPCS: 87077; 87086; 87088; 87186 ==